=== PATIENT | female | born 1955 | race Caucasian/White ===

== ENCOUNTER → 2020-10-31 14:02 | Outpatient (CLI) | payer OTHER, SELFPAY ==
--- NOTE | 2020-10-31 14:05 | DI.MG.S_ITS ---
BILATERAL DIGITAL SCREENING MAMMOGRAM 3D/2D WITH CAD: 10/31/2020 CLINICAL: Routine screening. Comparison is made to exams dated: 10/22/2013 mammogram, 02/03/2011 mammogram, and 01/07/2010 mammogram - [facility]. The tissue of both breasts is heterogeneously dense. This may lower the sensitivity of mammography. Current study was also evaluated with a Computer Aided Detection (CAD) system. No significant masses, calcifications, or other findings are seen in either breast. There has been no significant interval change. IMPRESSION: NEGATIVE There is no mammographic evidence of malignancy. A 1 year screening mammogram is recommended. This exam was interpreted at Station ID: [id number]. NOTE: For mammograms, a report in lay terms will be sent to the patient. Approximately 15% of breast malignancies will not be visualized mammographically. In the management of a palpable breast mass, a negative mammogram must not discourage biopsy of a clinically suspicious lesion. Electronically Signed By: Hakeem negro/oliver:11/02/2020 07:44:38 letter sent: Normal Exam ACR BI-RADS Category 1: Negative 3341F
== END ==
PROVIDERS: Family Provider Nurse Practitioner; PCP Family Medicine; Referring Provider Family Medicine; Visit Provider Family Medicine
DX: Z12.31 Encounter for screening mammogram for malignant neoplasm of breast (principal)
CPT/HCPCS: 77063; 77067

== ENCOUNTER 2020-11-12 12:05 | Day surgery (SDC) | payer OTHER, SELFPAY ==
[2020-11-12] VITALS (8 sets, daily range): BP systolic 137–153; BP diastolic 75–81; PULSE 81–104; RESP 12–16; TEMP 36.2–37.2; O2SAT 97–100; BMI 23.3
--- NOTE | 2020-11-12 13:48 | PM.PREOP ---
Pre-operative Note COVID-19 COVID-19 status: Negative Result date/Date tested (Pos, Neg/Pending): 11/10/20 Interval Note History & Physical reviewed/Exam performed by Physician: Yes Changes to H&P: No
[2020-11-12] MEDS: CEFAZOLIN 2 GM/100 ML FROZ.PIGGY IV (14:12)
--- NOTE | 2020-11-12 14:33 | SUR.OPER ---
Supine on padded OR bed, head on pillow, left arm secured on padded arm board at <90 degrees abduction,right arm draped free on padded black hand table legs uncrossed, safety belt at thigh, tape over blanket over lower legs.
[2020-11-12] MEDS: BUPIVACAINE 0.25% W/ EPI 30 ML VIAL INJ (14:40)
--- NOTE | 2020-11-12 15:21 | PM.OP.1 ---
Operative Date/Time/Diagnoses Date of procedure: 11/12/20 Time of procedure: 14:30 Pre-op diagnosis: Right basal thumb arthritis Post-op diagnosis: same Procedure & Clinicians Procedure: Right thumb LRTI Same procedure as scheduled: Yes Indications: Right basal thumb arthritis Surgeon: Rajinder Ramachandran Click Yes if Unassisted: Yes Anesthesia Type: General Operative Notes Findings: Arthritic changes to the basal joint as well as some signs of STT arthritis Closure Type: primary Specimen(s): none sent Applied: implant(s) (Tenodesis screw) Estimated Blood Loss (mL): 5 Blood products transfused: none Tourniquet time (min): 45 Procedure in detail: On date of service, the patient was met in the holding area. The operative site was signed and witnessed by the OR staff. The surgery was once again discussed with patient, and any remaining questions Were answered fully. Patient was taken back to the operating theater and placed on the operating table in a supine position. Great care was taken to ensure that all bony prominences were properly padded. A well-padded tourniquet was placed up along the upper extremity. A timeout was performed verifying patient's name, procedure, and operative site. The arm was prepped and draped in the normal sterile fashion. An Esmarch was used to exsanguinate the limb and the tourniquet was turned up to 250 mm mercury. A 15 blade was used to incise the skin only in a dorsal radial position. Pickups and tenotomy 3 used to dissect down through the fascial tissue. Great care was taken to ensure that the branches off the superficial radial nerve root identified and protected. Next, an interval was made between EPB and APL. The recurrent branch of the radial artery was identified and protected. The capsular tissues surrounding the basal joints was opened and released around the trapezium and a 360? fashion. This gave us good visualization of the basal joint as well as the trapezial scaphoid joint. Significant arthritis at the basal joints but no sign of any arthritis at the trapezial scaphoid joint. Next the trapezium was removed as well as any potential osteophytes. The wound was then copiously irrigated to remove any remaining bony fragments. The FCR tendon was then harvested. A drill was then used to make a bony tunnel through the first metacarpal. Guidewire was placed through the bony tunnel and the FCR tendon was pulled through the bony tunnel. With the tendon under tension, a tenodesis screw was placed securing the tendon into the bony tunnel. This provided a secure suspension plasty of the thumb, as well as recreating the beak ligament. The wound was irrigated once again. A thick capsular closure was performed using 2-0 Ethibond. The rest of the wound was closed in a layered fashion. The hand was then cleaned, dried, and dressed. Patient was placed into a thumb spica splint. Patient was taken back to the PACU in stable condition. Complications: none Post-operative Condition: stable Disposition: PACU Plan for aftercare: Patient will follow our postoperative protocol for an LR TI. Patient will be placed into a removable brace at 2 weeks. No restrictions range of motion at 2 weeks.
[2020-11-12] MEDS: OXYCODONE/ACETAMINOPHEN 5/325 TABLET 1 TAB PO (15:42)
--- NOTE | 2020-11-12 15:45 | SUR.PHASEI ---
Surgeon placed prescriptions for Percocet 5mg and for Vistaril 25mg for pt to fill after discharge for home use
== END 2020-11-12 16:15 | disposition home or self-care (01) ==
PROVIDERS: Family Provider Nurse Practitioner; PCP Family Medicine; Referring Provider Orthopaedic Surgery; Visit Provider Orthopaedic Surgery
PROC: (CPT 26540; principal; 2020-11-12 14:45)
DX: S66.819A Strain of other specified muscles, fascia and tendons at wrist and hand level, unspecified hand, initial encounter (principal); M18.11 Unilateral primary osteoarthritis of first carpometacarpal joint, right hand; W19.XXXA Unspecified fall, initial encounter; F32.9 Major depressive disorder, single episode, unspecified; J45.909 Unspecified asthma, uncomplicated
CPT/HCPCS: 25274; J0690; J1100; J2250; J2405; J2704; J3010

== ENCOUNTER → 2023-09-21 12:44 | Outpatient (CLI) | payer MEDICARE, OTHER, SELFPAY ==
--- NOTE | 2023-09-21 12:48 | DI.MG.S_ITS ---
BILATERAL DIGITAL SCREENING MAMMOGRAM 3D/2D WITH CAD: 09/21/2023 CLINICAL: Routine screening. Comparison is made to exams dated: 10/31/2020 mammogram, 10/22/2013 mammogram, and 02/03/2011 mammogram - [facility]. Both breasts are heterogeneously dense, which may obscure small masses (category c / 51-75% glandular tissue). Current study was also evaluated with a Computer Aided Detection (CAD) system. There are benign post operative findings in both breasts. No significant masses, calcifications, or other findings are seen in either breast. There has been no significant interval change. IMPRESSION: BENIGN There is no mammographic evidence of malignancy. A 1 year screening mammogram is recommended. Based on the Tyrer Cuzick model (a risk assessment model) the patient's lifetime risk is 6.9% and her 10 year risk is 3.6%. According to the ACR, ACS, and NCCN guidelines, an annual breast MRI exam along with mammogram is recommended if the patient's lifetime risk is 20% or greater. This exam was interpreted at Station ID: [id number]. NOTE: For mammograms, a report in lay terms will be sent to the patient. Approximately 15% of breast malignancies will not be visualized mammographically. In the management of a palpable breast mass, a negative mammogram must not discourage biopsy of a clinically suspicious lesion. Electronically Signed By: Jd lebron/oliver:09/21/2023 15:57:33 letter sent: Normal Exam ACR BI-RADS Category 2: Benign Finding(s) 3342F
== END ==
PROVIDERS: Family Provider Nurse Practitioner; PCP Family Medicine; Referring Provider Family Medicine; Visit Provider Family Medicine
DX: Z12.31 Encounter for screening mammogram for malignant neoplasm of breast (principal); R92.333 Mammographic heterogeneous density, bilateral breasts
CPT/HCPCS: 77063; 77067

== ENCOUNTER → 2023-11-14 13:56 | Outpatient (CLI) | payer MEDICARE, OTHER, SELFPAY ==
--- NOTE | 2023-11-14 13:57 | DI.RAD.S_ITS ---
PROCEDURE: XR DEXA AXIAL SKELETON INDICATIONS: Asymptomatic menopausal state COMPARISON: [facility], , DEXA AXIAL SKELETON, 12/18/2008, 12:01. FINDINGS: Left Hip: Bone mineral density 1.022 g/cm2, T score 0.7. Left Femoral Neck: Bone mineral density 0.795 g/cm2, T score -0.5. Right Hip: Bone mineral density 1.058 g/cm2, T score 0.9. Right Femoral Neck: Bone mineral density 0.989 g/cm2, T score 1.3. Left Forearm: Bone mineral density 0.632 g/cm2, T score -1.0. Fracture Risk Calculation (when applicable): FRAX not provided due to bone mineral density within normal limits. (T score greater or equal to -1.0 to: NORMAL) (T score from -1.1 to -2.4: OSTEOPENIA) (T score less than or equal to -2.5: OSTEOPOROSIS) IMPRESSION: Bone mineral density is within normal limits. Dictated by: Case Jimenez M.D. on 11/16/2023 at 11:09 Approved by: Case Jimenez M.D. on 11/16/2023 at 11:12
== END ==
LOC: RAD 13:56
PROVIDERS: Family Provider Nurse Practitioner; PCP Family Medicine; Referring Provider Physician Assistant; Visit Provider Physician Assistant
DX: Z78.0 Asymptomatic menopausal state (principal); Z13.820 Encounter for screening for osteoporosis
CPT/HCPCS: 77080; 77081

== ENCOUNTER → 2024-05-06 12:05 | Outpatient (CLI) | payer MEDICARE, OTHER, SELFPAY ==
--- NOTE | 2024-05-06 13:00 | DI.MRI.S_ITS ---
PROCEDURE: MR SHOULDER LT WO CON INDICATIONS: Pain in left shoulder TECHNIQUE: Noncontrast oblique coronal T2 fast spin echo with fat saturation, oblique sagittal T1 spin echo and T2 fast spin echo with fat saturation, axial T1 spin echo and T2 fast spin echo with fat saturation through the shoulder. COMPARISON: None. FINDINGS: Image quality: Excellent. Rotator cuff: There is full-thickness tear at the posterior footprint of the supraspinatus, extending to the superior footprint of the infraspinatus, measuring 1.5 cm on sagittal dimension. No significant tendon retraction. There is additional high-grade articular sided tear at the inferior footprint of the infraspinatus. There is moderate amount of fluid tracking along the myotendinous junction of the infraspinatus. The teres minor is unremarkable. The subscapularis is unremarkable. No muscle edema or fatty atrophy. Bones and bursae: Status post subacromial decompression. Type 2 acromion. No os acromiale. Large subacromial/subdeltoid bursitis. Mild subchondral marrow edema at the humeral head, reactive. No acute fracture. No focal chondral defect of the glenohumeral articulation. Capsule and soft tissues: Superior labral tear. The extra-articular biceps tendon is unremarkable. The intra-articular biceps tendon is unremarkable as well. Small glenohumeral effusion. No subcoracoid bursitis. IMPRESSION: 1. Status post subacromial decompression. Large subacromial/subdeltoid bursitis. 2. Full-thickness tear of the posterior footprint of the supraspinatus, extending posteriorly to the superior footprint of the infraspinatus. Additional high-grade articular sided tear at the inferior footprint of the infraspinatus. Dictated by: Estephanie Rowley M.D. on 05/06/2024 at 15:35 Approved by: Estephanie Rowley M.D. on 05/06/2024 at 15:46
== END ==
PROVIDERS: Family Provider Nurse Practitioner; PCP Family Medicine; Referring Provider Physician Assistant; Visit Provider Physician Assistant
DX: M75.122 Complete rotator cuff tear or rupture of left shoulder, not specified as traumatic (principal); M75.52 Bursitis of left shoulder; M67.922 Unspecified disorder of synovium and tendon, left upper arm; M25.512 Pain in left shoulder; R29.898 Other symptoms and signs involving the musculoskeletal system; G89.29 Other chronic pain
CPT/HCPCS: 73221